=== PATIENT | male | born 1965 | race Caucasian/White ===

== ENCOUNTER 2022-12-17 12:48 | Emergency (ER) | payer OTHER ==
[~2022-12-17] VITALS: Ht 182.9 cm; Wt 70.8 kg
[~2022-12-17 12:48] MED LIST: AZITHROMYCIN250 MG PO; BUPROPION HCL100 MG PO; BUPROPION HCL150 M2 PO; CLINDAMYCIN HC150 MG PO; DOXYCYCLINE HY100 M3 PO; GUAIFENESIN-CO118 ML PO; HYDROXYZINE PAM50 MG PO; IBUPROFEN600 MG PO; NORCO 5-325 TA1 EACH PO; OXYCODON-ACETA1 EAC2 PO; PREDNISONE20 MG PO; SERTRALINE HCL100 MG PO; VENTOLIN HFA18 GM INH; ZOLOFT50 MG PO
== END 2022-12-17 17:40 | disposition home or self-care (01) ==
LOC: ED 12:48
DX: S93.601A Unspecified sprain of right foot, initial encounter (principal); X58.XXXA Exposure to other specified factors, initial encounter; I10 Essential (primary) hypertension; J43.9 Emphysema, unspecified; F17.200 Nicotine dependence, unspecified, uncomplicated; Z88.0 Allergy status to penicillin; Z88.8 Allergy status to other drugs, medicaments and biological substances; Z79.899 Other long term (current) drug therapy
CPT/HCPCS: 73630; 99283-25